=== PATIENT | male | born 1955 | race Caucasian/White ===

== ENCOUNTER 2020-09-18 10:54 | Day surgery (SDC) | payer MEDICARE ==
[~2020-09-18] VITALS: Ht 177.8 cm; Wt 88.0 kg
[~2020-09-18 10:54] MED LIST: ATEN100T PO; LIDOCAINE 1% MDV 20ML VIAL SQ PRN; LR 1,000 ML IV ONE; ceFAZolin SOD 2 GM in IV 1 EA IV ONE
[2020-09-18] MEDS ORDERED: fentaNYL 100 MCG/2 ML INJECTION (J3010) As Ordered ONE (11:25)
[2020-09-18] MEDS ORDERED: MIDAZOLAM INJ 2MG/2ML VIAL (J2250 PER 1MG) As Ordered ONE (11:25)
[2020-09-18] MEDS ORDERED: propofoL 200 MG/20 ML VIAL As Ordered ONE (11:25)
[2020-09-18] MEDS ORDERED: ACETAMINOPHEN 1000MG 100ML IV BTL (OFIRMEV) (J0131 PER 10MG) As Ordered ONE (11:26)
[2020-09-18] MEDS ORDERED: LIDOCAINE 2% 100MG/5ML SDV (FOR ANES.) As Ordered ONE (11:26)
[2020-09-18] MEDS ORDERED: dexameTHASONE 4 MG/ML 1ML VIAL (J1100 PER 1MG) As Ordered ONE ×2 (11:26→13:45)
[2020-09-18] MEDS ORDERED: ONDANSETRON 4MG/2ML VIAL As Ordered ONE (11:26)
[2020-09-18] MEDS ORDERED: ROCURONIUM BROMIDE 50 MG/5 ML VIAL As Ordered ONE (11:37)
[2020-09-18] MEDS ORDERED: SUGAMMADEX SODIUM 500 MG/5 ML VIAL (BRIDION) As Ordered ONE (12:50)
[2020-09-18] MEDS ORDERED: CONRAY-60 60% 50ML VIAL (Q9961) As Ordered ONE (14:46)
--- NOTE | 2020-09-18 15:55 | REP ---
INDICATION: STENT PLACEMENT. COMPARISON: None. TECHNIQUE: Three C-arm views abdomen and pelvis. FINDINGS: Contrast is seen in the left ureter, which demonstrates no definite filling defect or stricture. Contrast partially opacifies the left pelvocaliceal system. A left ureteral stent is seen on the final image, the proximal end is coiled in the left renal pelvis and the distal end in the urinary bladder. IMPRESSION: 8 seconds of fluoroscopy time was utilized. <Electronically signed by Clemente Montez > 09/18/20 [id number]
[2020-09-18] MEDS ORDERED: oxyBUTYnin 5 MG TAB PO STA (16:05)
[2020-09-18] MEDS ORDERED: oxyCODONE 5MG TAB PO PRN (16:50)
[2020-09-18] MEDS ORDERED: ONDANSETRON 4MG/2ML VIAL IV PRN (16:50)
[2020-09-18] MEDS ORDERED: LR 1,000 ML IV SCH (16:50)
[2020-09-18] MEDS ORDERED: fentaNYL 100 MCG/2 ML INJECTION (J3010) IV PRN (16:50)
[2020-09-18] MEDS ORDERED: ACETAMINOPHEN TAB 650MG DOSE (2X325MG) PO PRN (16:55)
[2020-09-18 17:00] VITALS: BP 156/70
--- NOTE | 2020-09-19 16:14 | RO ---
OPERATIVE NOTE DATE OF OPERATION: 09/18/2020 PREOPERATIVE DIAGNOSIS: Bladder tumor. POSTOPERATIVE DIAGNOSIS: Bladder tumor. PROCEDURE: Cystoscopy, transurethral resection of bladder tumor (greater than 5 cm), urethral meatal dilation, left retrograde pyelogram with intraoperative interpretation of images, left ureteral stent placement, examination under anesthesia. SURGEON: Dr. Harvinder Lynch WET PROCESS OPERATOR: None. ANESTHESIA: General. OPERATIVE INDICATIONS: This is a 64-year-old male who was found to have a very large bladder tumor on recent cystoscopy. He was brought to the operating room today for treatment. DESCRIPTION OF PROCEDURE: The patient was brought to the operating room, and general anesthesia was induced. Prophylactic antibiotics were infused. He was placed in the dorsal lithotomy position, and then a bimanual digital rectal examination under anesthesia was performed. It was notable for a mildly enlarged prostate with no prostate nodules. The bladder was freely mobile, and there were no palpable bladder masses. The patient was then prepped and draped in the usual sterile fashion. At this point, I attempted to insert a resectoscope into the urethral meatus, but it would not go in, as the meatus was a little bit too narrow. I therefore dilated the urethral meatus to 30 Macedonian. After that, I was able to advance the scope into the urethra and all the way into the bladder. Once inside the bladder, there was an extremely large amount of papillary tumors growing on the left wall at the level of the bladder neck. There were no other tumors seen in any other location of the bladder. The right ureteral orifice was identified and effluxed clear urine. I could not see the left ureteral orifice, as the tumor was growing over the left ureteral orifice. At this point I utilized a bipolar loop to resect the bladder tumor. The more superficial tumor was resected and sent off as bladder tumor. Once I got down to where the tumor was coming out of the bladder wall, that was resected as well and sent as a resection of bladder tumor base. I then cauterized the base of resection until there was good hemostasis. I did have to resect the left ureteral orifice. Because of this, decision was made to place a left ureteral stent. At this point, a 5-Macedonian open-ended ureteral catheter was utilized to cannulate the ureteral orifice, and then a retrograde pyelogram was performed. It was negative for hydronephrosis, extravasation, or filling defects. I advanced the guidewire up the left collecting system and then removed the ureteral catheter. I utilized the guidewire to advance a 7-Macedonian x 22-32 cm JJ ureteral stent into the left collecting system. The wire was removed, and there were adequate curls of the stent in the left renal pelvis and in the bladder. After this was done, I confirmed that all the tumors had been removed. I also confirmed good hemostasis. Once there was good hemostasis, the resectoscope was removed. I then inserted an 18-Macedonian Molina catheter into the bladder, and the balloon was filled with 10 mL sterile water. The catheter was connected to gravity drainage, and this marked the conclusion of the procedure. The patient was taken out of the dorsal lithotomy position, awakened from anesthesia, and transferred to the recovery room in stable condition. ESTIMATED BLOOD LOSS: 10 mL. COMPLICATIONS: None. SPECIMENS: Bladder tumors, resection of bladder tumor base. PLAN: The patient will followup in urology clinic in approximately 1 week for catheter removal and to discuss pathology results. The stent will need to be removed in approximately 3-4 weeks. GIANA
== END 2020-09-18 17:09 | disposition home or self-care (01) ==
LOC: M SDC 10:54
PROVIDERS: ATTEND Urology
DX: C67.9 Malignant neoplasm of bladder, unspecified (principal); E78.5 Hyperlipidemia, unspecified; I10 Essential (primary) hypertension; L40.9 Psoriasis, unspecified; N40.0 Benign prostatic hyperplasia without lower urinary tract symptoms; M19.90 Unspecified osteoarthritis, unspecified site; Z79.899 Other long term (current) drug therapy; Z87.891 Personal history of nicotine dependence
CPT/HCPCS: 52240; 52332; 74420; 88305; C1769; C2617; J0131; J0690; J1100; J2250; J2405; J3010; Q9961

== ENCOUNTER 2020-10-23 09:42 | Day surgery (SDC) | payer MEDICARE ==
[~2020-10-23] VITALS: Ht 177.8 cm; Wt 86.5 kg
[~2020-10-23 09:42] MED LIST changes: -LIDOCAINE 1% MDV 20ML VIAL SQ PRN
[2020-10-23] MEDS ORDERED: MIDAZOLAM INJ 2MG/2ML VIAL (J2250 PER 1MG) As Ordered ONE (11:01)
[2020-10-23] MEDS ORDERED: SUGAMMADEX SODIUM 500 MG/5 ML VIAL (BRIDION) As Ordered ONE (11:02)
[2020-10-23] MEDS ORDERED: ACETAMINOPHEN 1000MG 100ML IV BTL (OFIRMEV) (J0131 PER 10MG) As Ordered ONE (11:02)
[2020-10-23] MEDS ORDERED: dexameTHASONE 4 MG/ML 1ML VIAL (J1100 PER 1MG) As Ordered ONE (11:02)
[2020-10-23] MEDS ORDERED: fentaNYL 100 MCG/2 ML INJECTION (J3010) As Ordered ONE (11:02)
[2020-10-23] MEDS ORDERED: ePHEDrine SULFATE 25 MG/5 ML(5MG/ML) SYRINGE As Ordered ONE (11:02)
[2020-10-23] MEDS ORDERED: ONDANSETRON 4MG/2ML VIAL As Ordered ONE (11:02)
[2020-10-23] MEDS ORDERED: ROCURONIUM BROMIDE 50 MG/5 ML VIAL As Ordered ONE (11:02)
[2020-10-23] MEDS ORDERED: PHENYLephrine 500MCG 5ML (100MCG/ML) SYRINGE As Ordered ONE (11:02)
[2020-10-23] MEDS ORDERED: LIDOCAINE 2% 100MG/5ML SDV (FOR ANES.) As Ordered ONE (11:03)
[2020-10-23] MEDS ORDERED: propofoL 200 MG/20 ML VIAL As Ordered ONE (11:03)
[2020-10-23] MEDS ORDERED: LR 1,000 ML IV SCH (13:20)
[2020-10-23] MEDS ORDERED: METOCLOPRAMIDE INJ 10MG/2ML VIAL (J2765 PER 1) IV PRN (13:20)
[2020-10-23] MEDS ORDERED: PERCOCET 5MG/325MG TAB PO PRN (13:20)
[2020-10-23] MEDS ORDERED: ONDANSETRON 4MG/2ML VIAL IV PRN (13:20)
[2020-10-23] MEDS ORDERED: fentaNYL 100 MCG/2 ML INJECTION (J3010) IV PRN (13:20)
[2020-10-23] MEDS ORDERED: ACETAMINOPHEN TAB 650MG DOSE (2X325MG) PO PRN (13:25)
[2020-10-23 15:15] VITALS: BP 181/86
--- NOTE | 2020-10-24 09:02 | RO ---
OPERATIVE NOTE DATE OF OPERATION: 10/23/2020 PREOPERATIVE DIAGNOSES: Bladder cancer. POSTOPERATIVE DIAGNOSIS: Bladder cancer. PROCEDURE: Cystoscopy, restaging transurethral resection of bladder tumors (greater than 5 cm), urethral meatal dilation, left ureteral stent removal. SURGEON: Harvinder Lynch MD WOOL BRUSHER: None. ANESTHESIA: General. OPERATIVE INDICATIONS: This is a 65-year-old male who was found to have a large bladder tumor on the left side with blood near the bladder neck that was resected approximately a month ago. This was positive for high-grade bladder without any definite muscle invasion. He also had a left ureteral stent placed at the time. He is brought back for routine restage and transurethral resection of bladder tumor and also to remove his stent. DESCRIPTION OF PROCEDURE: The patient was brought to the operating room and general anesthesia was induced. Prophylactic antibiotics were infused. He was then placed in a dorsal lithotomy position and prepped and draped in the usual sterile fashion. At this point, I attempted to insert a rigid cystoscope into the urethral meatus but it would not go as the meatus was too narrow. I therefore dilated the urethral meatus to 30 Greek using curved metal sounds. Once that was done, a cystoscope was advanced in and the bladder thoroughly examined with both the 30 and the 70 degree lenses. No definite residual tumors were seen inside the bladder. A previously placed left ureteral stent was seen. Also, a moderate amount of fibrotic tissue from his previous resection was seen on the left wall near the bladder neck. At this point, the cystoscope was traded out for a resectoscope. I then resected near the bladder neck on the left side in the area of previous resection. I did try to resection down to the muscle layer. All this tissue was sent off as resection of bladder tumor base. I did not resect the ureteral orifice on the left side again at this time. Once I was done resecting all this tissue, hemostasis was obtained using the coagulation current. Once satisfied with hemostasis, I then removed the patient's left ureteral stent. Once that was done, an 18 Greek Molina catheter was inserted into the bladder and the balloon was filled with 10 mL of sterile water. The catheter was connected to gravity drainage and this marked the conclusion of the procedure. The patient was then taken out of dorsal lithotomy position, awakened from anesthesia and transported to the recovery room in stable condition. ESTIMATED BLOOD LOSS: 10 mL COMPLICATIONS: None. SPECIMENS: Resection, bladder tumor base. PLAN: The patient will follow up in urology clinic in approximately one week for catheter removal and to discuss his pathology results. If this is indeed non-muscle invasive, then we will set him up from intravesical BCG. If there is any sign of muscle invasion, then we will recommend a radical cystectomy with neoadjuvant chemotherapy. MTDD
== END 2020-10-23 15:32 | disposition home or self-care (01) ==
LOC: M SDC 09:42
PROVIDERS: ATTEND Urology
DX: C67.9 Malignant neoplasm of bladder, unspecified (principal); I10 Essential (primary) hypertension; K21.9 Gastro-esophageal reflux disease without esophagitis; G40.909 Epilepsy, unspecified, not intractable, without status epilepticus; L40.9 Psoriasis, unspecified; Z87.891 Personal history of nicotine dependence; Z79.899 Other long term (current) drug therapy
CPT/HCPCS: 52240; 88305; J0131; J0690; J1100; J2250; J2370; J2405; J3010

== ENCOUNTER → 2021-02-19 | Outpatient (REF) | payer MEDICARE ==
[~2021-02-19] MED LIST changes: -LR 1,000 ML IV ONE; -ceFAZolin SOD 2 GM in IV 1 EA IV ONE
== END ==
LOC: M SMT 17:22
PROVIDERS: ATTEND Urology
DX: C67.9 Malignant neoplasm of bladder, unspecified (principal)
CPT/HCPCS: 88108; 88305; G0463

== ENCOUNTER → 2021-07-12 | Outpatient (REF) | payer MEDICARE | LOC: M SMT 12:50 | PROVIDERS: ATTEND Urology | DX: C67.9 Malignant neoplasm of bladder, unspecified (principal) ==

== ENCOUNTER → 2021-10-18 | Outpatient (REF) | payer MEDICARE | LOC: M SMT 13:04 | PROVIDERS: ATTEND Urology | DX: C67.9 Malignant neoplasm of bladder, unspecified (principal) | CPT/HCPCS: 52000; 88108; G0463 ==

== ENCOUNTER 2021-10-27 11:48 | Day surgery (SDC) | payer MEDICARE ==
[~2021-10-27] VITALS: Ht 177.8 cm; Wt 84.7 kg
[~2021-10-27 11:48] MED LIST changes: +ceFAZolin SOD 2 GM in IV 1 EA IV ONE; +mitoMYcin 40MG VIAL *UROLOGY* (J9280 PER 5MG) INTRAVESIC ONE
[2021-10-27] MEDS ORDERED: LR 1,000 ML IV SCH ×2 (12:10→14:40)
[2021-10-27] MEDS ORDERED: ACETAMINOPHEN 1000MG 100ML IV BTL (OFIRMEV) (J0131 PER 10MG) As Ordered ONE (14:15)
[2021-10-27] MEDS ORDERED: dexameTHASONE 4 MG/ML 1ML VIAL (J1100 PER 1MG) As Ordered ONE (14:15)
[2021-10-27] MEDS ORDERED: propofoL 200 MG/20 ML VIAL As Ordered ONE (14:15)
[2021-10-27] MEDS ORDERED: MIDAZOLAM INJ 2MG/2ML VIAL (J2250 PER 1MG) As Ordered ONE (14:15)
[2021-10-27] MEDS ORDERED: ROCURONIUM BROMIDE 50 MG/5 ML VIAL As Ordered ONE (14:15)
[2021-10-27] MEDS ORDERED: ONDANSETRON 4MG 2ML VIAL As Ordered ONE (14:15)
[2021-10-27] MEDS ORDERED: fentaNYL 100 MCG/2 ML INJECTION As Ordered ONE (14:15)
[2021-10-27] MEDS ORDERED: LIDOCAINE 2% 100MG/5ML SDV (FOR ANES.) As Ordered ONE (14:15)
[2021-10-27] MEDS ORDERED: SUGAMMADEX SODIUM 500 MG/5 ML VIAL (BRIDION) As Ordered ONE (14:16)
[2021-10-27] MEDS ORDERED: MORPHINE 2 MG/ML 1ML VIAL IV PRN (14:40)
[2021-10-27] MEDS ORDERED: ONDANSETRON 4MG 2ML VIAL IV PRN (14:40)
[2021-10-27] MEDS ORDERED: PERCOCET 5MG/325MG TAB PO PRN (14:40)
[2021-10-27] MEDS ORDERED: fentaNYL 100 MCG/2 ML INJECTION IV PRN (14:40)
[2021-10-27] MEDS ORDERED: OXYB5TAB10 PO (15:13)
[2021-10-27] MEDS ORDERED: ACETAMINOPHEN TAB 650MG DOSE (2X325MG) PO PRN (15:15)
[2021-10-27 15:23] VITALS: BP 167/70
[2021-10-27] MEDS ORDERED: oxyBUTYnin *DITROPAN XL* 5 MG TABCR PO ONE (16:00)
== END 2021-10-27 16:17 | disposition home or self-care (01) ==
LOC: M SDC 11:48
PROVIDERS: ATTEND Urology
DX: C67.9 Malignant neoplasm of bladder, unspecified (principal); I10 Essential (primary) hypertension; Z79.899 Other long term (current) drug therapy
CPT/HCPCS: 51720; 52235; 88305; J0131; J0690; J1100; J2250; J2405; J3010; J9280

== ENCOUNTER → 2022-02-07 | Outpatient (REF) | payer MEDICARE ==
[~2022-02-07] MED LIST changes: +OXYB5TAB10 PO; -ceFAZolin SOD 2 GM in IV 1 EA IV ONE; -mitoMYcin 40MG VIAL *UROLOGY* (J9280 PER 5MG) INTRAVESIC ONE
== END ==
LOC: M SMT 13:01
PROVIDERS: ATTEND Urology
DX: C67.9 Malignant neoplasm of bladder, unspecified (principal)

== ENCOUNTER 2022-02-24 07:13 | Day surgery (SDC) | payer MEDICARE ==
[~2022-02-24] VITALS: Ht 177.8 cm; Wt 85.2 kg
[~2022-02-24 07:13] MED LIST changes: +ceFAZolin SOD 2 GM in IV 1 EA IV ONE
[2022-02-24] MEDS ORDERED: MIDAZOLAM INJ 2MG/2ML VIAL (J2250 PER 1MG) As Ordered ONE (07:29)
[2022-02-24] MEDS ORDERED: fentaNYL 100 MCG/2 ML INJECTION As Ordered ONE (07:30)
[2022-02-24] MEDS ORDERED: propofoL 200 MG/20 ML VIAL As Ordered ONE (07:32)
[2022-02-24] MEDS ORDERED: LIDOCAINE 2% 100MG/5ML SDV (FOR ANES.) As Ordered ONE (07:32)
[2022-02-24] MEDS ORDERED: ROCURONIUM BROMIDE 50 MG/5 ML VIAL As Ordered ONE (07:32)
[2022-02-24] MEDS ORDERED: ISOVUE-300 61% 50ML VIAL As Ordered ONE (08:28)
[2022-02-24] MEDS ORDERED: SUGAMMADEX SODIUM 500 MG/5 ML VIAL (BRIDION) As Ordered ONE (08:41)
[2022-02-24] MEDS ORDERED: fentaNYL 100 MCG/2 ML INJECTION IV PRN (08:55)
[2022-02-24] MEDS ORDERED: ONDANSETRON 4MG 2ML VIAL IV PRN (08:55)
[2022-02-24] MEDS ORDERED: LR 1,000 ML IV SCH (08:55)
[2022-02-24] MEDS ORDERED: METOCLOPRAMIDE INJ 10MG/2ML VIAL (J2765 PER 1) IV PRN (08:55)
[2022-02-24] MEDS ORDERED: oxyCODONE 5MG TAB PO PRN (08:55)
[2022-02-24] MEDS ORDERED: HYDROMORPHONE HCL 0.5 MG/ 0.5 ML SYRINGE (J1170 PER 1) IV PRN (08:55)
[2022-02-24 09:40] VITALS: BP 164/79
[2022-02-24] MEDS ORDERED: oxyBUTYnin 5 MG TAB PO PRN (09:45)
[2022-02-24] MEDS ORDERED: ACETAMINOPHEN TAB 650MG DOSE (2X325MG) PO PRN (09:45)
== END 2022-02-24 10:30 | disposition home or self-care (01) ==
LOC: M SDC 07:13
PROVIDERS: ATTEND Urology
DX: C67.9 Malignant neoplasm of bladder, unspecified (principal); I10 Essential (primary) hypertension; L40.9 Psoriasis, unspecified; Z87.891 Personal history of nicotine dependence; Z79.899 Other long term (current) drug therapy
CPT/HCPCS: 52234; 52332; 74420; 88305; C1769; C2617; J0690; J2250; J3010; Q9967

== ENCOUNTER → 2022-06-28 | Outpatient (REF) | payer MEDICARE ==
[~2022-06-28] MED LIST changes: -ceFAZolin SOD 2 GM in IV 1 EA IV ONE
== END ==
LOC: M SMT 17:08
PROVIDERS: ATTEND Urology
DX: C67.9 Malignant neoplasm of bladder, unspecified (principal)

== ENCOUNTER → 2022-10-03 | Outpatient (REF) | payer MEDICARE | LOC: M SMT 12:54 | PROVIDERS: ATTEND Urology | DX: C67.9 Malignant neoplasm of bladder, unspecified (principal) ==

== ENCOUNTER → 2023-01-19 | Outpatient (REF) | payer MEDICARE ==
[~2023-01-19] MED LIST changes: -OXYB5TAB10 PO; +OXYB5TAB11 PO
== END ==
LOC: M SMT 17:08
PROVIDERS: ATTEND Urology
DX: C67.9 Malignant neoplasm of bladder, unspecified (principal)

== ENCOUNTER → 2023-05-01 | Outpatient (REF) | payer MEDICARE | LOC: M SMT 15:29 | PROVIDERS: ATTEND Urology | DX: C67.9 Malignant neoplasm of bladder, unspecified (principal) ==

== ENCOUNTER → 2023-08-07 | Outpatient (REF) | payer MEDICARE ==
[~2023-08-07] MED LIST changes: -OXYB5TAB11 PO; +OXYB5TAB14 PO
== END ==
LOC: M SMT 15:18
PROVIDERS: ATTEND Urology
DX: C67.9 Malignant neoplasm of bladder, unspecified (principal)

== ENCOUNTER → 2023-11-06 | Outpatient (REF) | payer MEDICARE | LOC: M SMT 12:54 | PROVIDERS: ATTEND Urology | DX: C67.9 Malignant neoplasm of bladder, unspecified (principal) ==

== ENCOUNTER → 2024-02-06 | Outpatient (REF) | payer MEDICARE | LOC: M SMT 12:53 | PROVIDERS: ATTEND Urology | DX: C67.9 Malignant neoplasm of bladder, unspecified (principal) ==

== ENCOUNTER → 2024-08-06 | Outpatient (REF) | payer MEDICARE | LOC: M SMT 13:02 | PROVIDERS: ATTEND Urology | DX: C67.9 Malignant neoplasm of bladder, unspecified (principal) ==

== ENCOUNTER → 2025-02-03 | Outpatient (REF) | payer MEDICARE | LOC: M SMT 13:06 | PROVIDERS: ATTEND Urology | DX: C67.9 Malignant neoplasm of bladder, unspecified (principal) ==